=== PATIENT | male | born 1935 | race Caucasian/White ===

== ENCOUNTER 2017-08-28 16:50 | Inpatient (IN) | payer BC ==
[~2017-08-28 16:50] MED LIST: ATROPINE 1 MG/10 ML SYRINGE
[2017-08-28] MEDS: IPRATROPIUM (NEB) 0.5 MG/2.5 ML AMP INH (17:24)
[2017-08-28] MEDS: ALBUTEROL 0.5% (NEB) 2.5 MG/0.5 ML AMP INH (17:24)
[2017-08-28] MEDS: NITROGLYCERIN 50 MG/D5W (PMX) 250 ML IV (17:29)
[2017-08-28] MEDS: FUROSEMIDE 40 MG INJ IV (17:29)
[2017-08-28] MEDS: METHYLPREDNISOLONE 125 MG INJ IV (17:30)
[2017-08-28 17:31] LABS: ADD MAN DIFF? NO
[2017-08-28 17:34] LABS: AADO2 Arterial 46.3 mmHg (7.0-24.0); Allen Test ACCEPTAB; Arterial Base Excess 14.5 mmol/L (-3.0-3); Arterial Blood Gas Oxygen Sat 98.4 mmHG (95.0-100.0); Arterial COHb 0.9 % (0.0-3.0); Arterial Fraction of Oxyhgb 97.2 % (93.0-99.0); Arterial HCO3 47.9 mmol/L (22.0-26.0); Arterial MetHb 0.3 % (0.0-1.5); Arterial Total Hemglobin 11.8 g/dl (12.0-18.0); Arterial pCO2 135.6 mmhg (35-45); Blood Gas IEPAP 15/5; Blood Gas PS 10; MODE MASK - BIPAP; Site Right Radial
[2017-08-28 17:35] LABS: BASOPHILS % 0.2 % (0.0-2.0); EOSINOPHILS % 0.2 % (0.0-7.0); HEMATOCRIT 37.9 % (42.0-52.0); HEMOGLOBIN 11.4 g/dl (14.0-18.0); LYMPHOCYTES # 1.9 10^3/ul (0.8-2.9); MEAN CORPUSCULAR HEMOGLOBIN 29.3 pg (29.0-33.0); MEAN CORPUSCULAR HGB CONC 30.1 g/dl (32.0-37.0); MEAN CORPUSCULAR VOLUME 97.4 fl (82.0-101.0); MEAN PLATELET VOLUME 11.5 fl (7.4-10.4); MONOCYTE # 0.5 10^3/ul (0.3-0.9); NEUTROPHIL # 7.5 10^3/ul (1.6-7.5); NEUTROPHILS % 74.9 % (39.0-77.0); PLATELET COUNT 230 10^3/UL (140-415); RED BLOOD COUNT 3.89 10^6/ul (4.70-6.10); RED CELL DISTRIBUTION WIDTH 14.9 % (11.5-14.5)
[2017-08-28 17:50] LABS: INR 0.92; PROTIME 12.4 Sec (11.9-14.9)
[2017-08-28 17:51] LABS: PARTIAL THROMBOPLASTIN TIME 33.6 Sec (25.0-35.0)
[2017-08-28 17:53] LABS: ALANINE AMINOTRANSFERASE 41 IU/L (13-69); ALBUMIN 3.5 g/dl (3.3-4.9); ALBUMIN/GLOBULIN RATIO 1.06; ALKALINE PHOSPHATASE 72 IU/L (42-121); ASPARTATE AMINO TRANSFERASE 33 IU/L (15-46); BLOOD UREA NITROGEN 27 mg/dl (7-20); CALCIUM 10.4 mg/dl (8.4-10.2); CHLORIDE 94 mmol/L (97-110); CREATININE 0.74 mg/dl (0.61-1.24); GLUCOSE 161 mg/dl (70-220); POTASSIUM 4.1 mmol/L (3.5-5.1); SODIUM 144 mmol/L (135-144); TOTAL PROTEIN 6.8 g/dl (6.1-8.1)
[2017-08-28 18:02] LABS: ANION GAP 10 (8-16)
[2017-08-28 18:03] LABS: CARBON DIOXIDE 44 mmol/L (21-31)
[2017-08-28 18:14] LABS: TROPONIN-I < 0.012 ng/ml (0.00-0.12)
[2017-08-28] MEDS: HALOPERIDOL 5 MG INJ IV ×2 (19:17→19:57)
[2017-08-28 19:55] LABS: ADD UMIC NO; UR ASCORBIC ACID NEGATIVE (NEGATIVE); UR BILIRUBIN (Dip) NEGATIVE (NEGATIVE); UR BLOOD (Dip) NEGATIVE (NEGATIVE); UR CLARITY CLEAR (CLEAR); UR COLOR STRAW (YELLOW); UR GLUCOSE (Dip) NEGATIVE (NEGATIVE); UR KETONES (Dip) NEGATIVE (NEGATIVE); UR LEUKOCYTE ESTERASE (Dip) NEGATIVE Leu/ul (NEGATIVE); UR NITRITE (Dip) NEGATIVE (NEGATIVE); UR SPECIFIC GRAVITY (Dip) 1.006 (1.003-1.030); UR TOTAL PROTEIN (Dip) NEGATIVE (NEGATIVE); UR UROBILINOGEN (Dip) NEGATIVE (NEGATIVE)
[2017-08-28] MEDS: CEFEPIME 1GM/50 ML (PMX) 50 ML IVPB (20:34)
[2017-08-28] MEDS: CIPROFLOXACIN 400MG/D5W 200 ML IVPB (20:48)
[2017-08-28 20:55] LABS: Arterial Blood Gas Oxygen Sat 78.6 mmHG (95.0-100.0); Arterial COHb 1.3 % (0.0-3.0); Arterial Fraction of Oxyhgb 77.3 % (93.0-99.0); Arterial HCO3 44.8 mmol/L (22.0-26.0); Arterial MetHb 0.3 % (0.0-1.5); Arterial Total Hemglobin 11.4 g/dl (12.0-18.0); Arterial pCO2 81.5 mmhg (35-45); Blood Gas IEPAP 15/5; MODE MASK - BIPAP; Site Right Brachial
[2017-08-28] MEDS ORDERED: ALBUTEROL/IPRATROPIUM (NEB) 3 ML AMP HHN (21:30)
[2017-08-28] MEDS: ALBUTEROL/IPRATROPIUM (NEB) 3 ML AMP HHN (21:41)
[2017-08-29] MEDS: ALBUTEROL/IPRATROPIUM (NEB) 3 ML AMP HHN ×6 (00:54→20:41)
[2017-08-29 01:25] LABS: TROPONIN-I < 0.012 ng/ml (0.00-0.12)
[2017-08-29 06:08] LABS: ADD MAN DIFF? NO
[2017-08-29 06:14] LABS: ABNORMAL IP MESSAGE 1; HEMOGLOBIN 10.4 g/dl (14.0-18.0); LYMPHOCYTES # 0.6 10^3/ul (0.8-2.9); LYMPHOCYTES % 9.5 % (15.0-51.0); MEAN CORPUSCULAR HEMOGLOBIN 28.3 pg (29.0-33.0); MEAN CORPUSCULAR HGB CONC 29.7 g/dl (32.0-37.0); MEAN CORPUSCULAR VOLUME 95.4 fl (82.0-101.0); MEAN PLATELET VOLUME 11.6 fl (7.4-10.4); MONOCYTE # 0.2 10^3/ul (0.3-0.9); MONOCYTES % 3.9 % (0.0-11.0); NEUTROPHIL # 5.3 10^3/ul (1.6-7.5); NEUTROPHILS % 86.1 % (39.0-77.0); PLATELET COUNT 211 10^3/UL (140-415); POSITIVE DIFF @See below; RED BLOOD COUNT 3.67 10^6/ul (4.70-6.10); RED CELL DISTRIBUTION WIDTH 14.8 % (11.5-14.5)
[2017-08-29 06:14] LABS: WHITE BLOOD COUNT 6.1 10^3/ul (4.8-10.8)
[2017-08-29 06:36] LABS: ALANINE AMINOTRANSFERASE 48 IU/L (13-69); ALBUMIN 3.5 g/dl (3.3-4.9); ALBUMIN/GLOBULIN RATIO 1.29; ALKALINE PHOSPHATASE 65 IU/L (42-121); ASPARTATE AMINO TRANSFERASE 32 IU/L (15-46); BLOOD UREA NITROGEN 25 mg/dl (7-20); CALCIUM 9.8 mg/dl (8.4-10.2); CHLORIDE 94 mmol/L (97-110); CREATININE 0.77 mg/dl (0.61-1.24); GLUCOSE 109 mg/dl (70-220); POTASSIUM 4.1 mmol/L (3.5-5.1); SODIUM 144 mmol/L (135-144); TOTAL PROTEIN 6.2 g/dl (6.1-8.1)
[2017-08-29 06:37] LABS: ANION GAP 14 (8-16)
[2017-08-29 06:46] LABS: B-TYPE NATRIURETIC PEPTIDE 427 PG/ML (0-450)
[2017-08-29 06:48] LABS: TROPONIN-I 0.013 ng/ml (0.00-0.12)
[2017-08-29 06:49] LABS: CARBON DIOXIDE 44 mmol/L (21-31)
[2017-08-29] MEDS: HALOPERIDOL 5 MG INJ IM ×4 (07:43→22:52)
[2017-08-29] MEDS: FUROSEMIDE 40 MG INJ IV ×2 (09:33→18:55)
[2017-08-29] MEDS: CEFEPIME 1GM/50 ML (PMX) 50 ML IVPB ×2 (09:33→22:34)
[2017-08-29] MEDS: CIPROFLOXACIN 400MG/D5W 200 ML IVPB ×2 (09:33→22:33)
[2017-08-29 11:50] LABS: AADO2 Arterial 156.7 mmHg (7.0-24.0); Allen Test ACCEPTAB; Arterial Base Excess 18.9 mmol/L (-3.0-3); Arterial Blood Gas Oxygen Sat 94.9 mmHG (95.0-100.0); Arterial COHb 0.6 % (0.0-3.0); Arterial HCO3 46.9 mmol/L (22.0-26.0); Arterial MetHb 0.3 % (0.0-1.5); Arterial Total Hemglobin 11.4 g/dl (12.0-18.0); Blood Gas IEPAP 15/5; MODE MASK - BIPAP; Site Right Radial
[2017-08-30] MEDS: ALBUTEROL/IPRATROPIUM (NEB) 3 ML AMP HHN ×6 (00:53→21:00)
[2017-08-30] MEDS ORDERED: PENDING SANTYL ORDER FOR WOUND CARE XX (01:00)
[2017-08-30] MEDS: FUROSEMIDE 40 MG INJ IV (05:37)
[2017-08-30 08:34] LABS: AADO2 Arterial 127.1 mmHg (7.0-24.0); Allen Test ACCEPTAB; Arterial Base Excess 20.7 mmol/L (-3.0-3); Arterial Blood Gas Oxygen Sat 97.9 mmHG (95.0-100.0); Arterial COHb 0.2 % (0.0-3.0); Arterial Fraction of Oxyhgb 97.4 % (93.0-99.0); Arterial HCO3 52.4 mmol/L (22.0-26.0); Arterial MetHb 0.3 % (0.0-1.5); Arterial Total Hemglobin 11.8 g/dl (12.0-18.0); Arterial pCO2 112.6 mmhg (35-45); Blood Gas IEPAP 22/8; MODE MASK - BIPAP; Site Right Radial
[2017-08-30 08:43] LABS: ADD MAN DIFF? NO
[2017-08-30 08:48] LABS: BASOPHILS % 0.2 % (0.0-2.0); HEMATOCRIT 35.8 % (42.0-52.0); HEMOGLOBIN 10.6 g/dl (14.0-18.0); LYMPHOCYTES # 1.5 10^3/ul (0.8-2.9); LYMPHOCYTES % 12.5 % (15.0-51.0); MEAN CORPUSCULAR HEMOGLOBIN 28.9 pg (29.0-33.0); MEAN CORPUSCULAR HGB CONC 29.6 g/dl (32.0-37.0); MEAN CORPUSCULAR VOLUME 97.5 fl (82.0-101.0); MEAN PLATELET VOLUME 11.9 fl (7.4-10.4); MONOCYTE # 1.1 10^3/ul (0.3-0.9); MONOCYTES % 9.4 % (0.0-11.0); NEUTROPHIL # 9.2 10^3/ul (1.6-7.5); NEUTROPHILS % 77.6 % (39.0-77.0); PLATELET COUNT 233 10^3/UL (140-415); RED BLOOD COUNT 3.67 10^6/ul (4.70-6.10); RED CELL DISTRIBUTION WIDTH 15.4 % (11.5-14.5)
[2017-08-30 08:48] LABS: WHITE BLOOD COUNT 11.8 10^3/ul (4.8-10.8)
[2017-08-30 09:05] LABS: BLOOD UREA NITROGEN 32 mg/dl (7-20); CHLORIDE 90 mmol/L (97-110); CREATININE 1.06 mg/dl (0.61-1.24); GLUCOSE 101 mg/dl (70-220); POTASSIUM 3.3 mmol/L (3.5-5.1); SODIUM 148 mmol/L (135-144)
[2017-08-30 09:06] LABS: C-REACTIVE PROTEIN 0.6 mg/dl (0.0-0.9)
[2017-08-30 09:15] LABS: ANION GAP 11 (8-16)
[2017-08-30 09:18] LABS: CARBON DIOXIDE 50 mmol/L (21-31)
[2017-08-30] MEDS: CEFEPIME 1GM/50 ML (PMX) 50 ML IVPB ×2 (09:58→22:04)
[2017-08-30] MEDS: CIPROFLOXACIN 400MG/D5W 200 ML IVPB (09:58)
[2017-08-30 10:22] LABS: ERYTHROCYTE SEDIMENTATION RATE 15 mm/Hr (0-20)
[2017-08-30 13:00] LABS: AADO2 Arterial 75.1 mmHg (7.0-24.0); Allen Test ACCEPTAB; Arterial Base Excess 20.9 mmol/L (-3.0-3); Arterial Blood Gas Oxygen Sat 76.4 mmHG (95.0-100.0); Arterial COHb 0.8 % (0.0-3.0); Arterial Fraction of Oxyhgb 75.6 % (93.0-99.0); Arterial HCO3 52.2 mmol/L (22.0-26.0); Arterial MetHb 0.3 % (0.0-1.5); Arterial Total Hemglobin 11.4 g/dl (12.0-18.0); Arterial pCO2 110.3 mmhg (35-45); Blood Gas IEPAP 22/8; MODE MASK - BIPAP; Site Right Radial
[2017-08-30] MEDS: SILVER SULFADIAZINE 1% 25 GM CR TOP (15:14)
[2017-08-30] MEDS ORDERED: POTASSIUM CHLORIDE 50 ML IVPB (17:30)
[2017-08-30] MEDS: POTASSIUM CHLORIDE 20 MEQ in DEXTROSE 5% 100 ML IV (18:28)
[2017-08-30] MEDS: D5W-0.45 NACL + KCL 20 MEQ 1,000 ML IV (18:28)
[2017-08-31] MEDS: ALBUTEROL/IPRATROPIUM (NEB) 3 ML AMP HHN ×4 (00:16→13:05)
[2017-08-31] MEDS: PANTOPRAZOLE 40 MG INJ IV (05:16)
[2017-08-31 07:45] LABS: ADD MAN DIFF? NO
[2017-08-31 07:51] LABS: ABNORMAL IP MESSAGE 1; BASOPHILS % 0.1 % (0.0-2.0); HEMATOCRIT 43.1 % (42.0-52.0); HEMOGLOBIN 11.6 g/dl (14.0-18.0); LYMPHOCYTES % 6.7 % (15.0-51.0); MEAN CORPUSCULAR HEMOGLOBIN 28.6 pg (29.0-33.0); MEAN CORPUSCULAR HGB CONC 26.9 g/dl (32.0-37.0); MEAN CORPUSCULAR VOLUME 106.2 fl (82.0-101.0); MEAN PLATELET VOLUME 11.4 fl (7.4-10.4); MONOCYTE # 1.8 10^3/ul (0.3-0.9); MONOCYTES % 12.4 % (0.0-11.0); NEUTROPHIL # 11.7 10^3/ul (1.6-7.5); NEUTROPHILS % 80.5 % (39.0-77.0); PLATELET COUNT 238 10^3/UL (140-415); POSITIVE DIFF @See below; RED BLOOD COUNT 4.06 10^6/ul (4.70-6.10); RED CELL DISTRIBUTION WIDTH 14.8 % (11.5-14.5)
[2017-08-31 07:51] LABS: WHITE BLOOD COUNT 14.5 10^3/ul (4.8-10.8)
[2017-08-31] MEDS ORDERED: DOPamine-D5W 1.6 MG/ML 250 ML IV (08:00)
[2017-08-31] MEDS: NORepinephrine 8MG/250 ML (PMX 250 ML IV (08:16)
[2017-08-31] MEDS: SOD CHLORIDE 0.9% 500 ML IV ×2 (08:18→15:55)
[2017-08-31 08:26] LABS: AADO2 Arterial 50.4 mmHg (7.0-24.0); Allen Test ACCEPTAB; Arterial Base Excess 12.9 mmol/L (-3.0-3); Arterial Blood Gas Oxygen Sat 96.8 mmHG (95.0-100.0); Arterial COHb 1.5 % (0.0-3.0); Arterial Fraction of Oxyhgb 95.1 % (93.0-99.0); Arterial HCO3 48.2 mmol/L (22.0-26.0); Arterial MetHb 0.3 % (0.0-1.5); Arterial Total Hemglobin 11.9 g/dl (12.0-18.0); Arterial pCO2 166.3 mmhg (35-45); Blood Gas IEPAP 22/8; MODE MASK - BIPAP; Site Right Radial
[2017-08-31 08:33] LABS: BLOOD UREA NITROGEN 59 mg/dl (7-20); CALCIUM 9.4 mg/dl (8.4-10.2); CHLORIDE 92 mmol/L (97-110); CREATININE 2.26 mg/dl (0.61-1.24); GLUCOSE 171 mg/dl (70-220); MAGNESIUM 2.5 mg/dl (1.7-2.5); PHOSPHORUS 8.1 mg/dl (2.5-4.9); POTASSIUM 4.1 mmol/L (3.5-5.1); SODIUM 151 mmol/L (135-144)
[2017-08-31 08:34] LABS: ANION GAP 13 (8-16); CARBON DIOXIDE 50 mmol/L (21-31)
[2017-08-31] MEDS: CEFEPIME 1GM/50 ML (PMX) 50 ML IVPB (09:00)
[2017-08-31] MEDS: ENOXAPARIN 40 MG/0.4 ML SYG SC (09:17)
[2017-08-31] MEDS ORDERED: VANCOMYCIN IV PER PHARMACY XX (09:30)
[2017-08-31] MEDS: LIDOCAINE 1% (MPF) 5 ML VIAL SC (10:25)
[2017-08-31] MEDS: PIPER-TAZO 2.25 GM (PMX) 50 ML IVPB (10:59)
[2017-08-31] MEDS: SILVER SULFADIAZINE 1% 25 GM CR TOP (10:59)
[2017-08-31] MEDS: D5W-0.45 NACL + KCL 20 MEQ 1,000 ML IV (11:00)
[2017-08-31] MEDS: VANCOMYCIN 1.75 GM in DEXTROSE 5% 500 ML IVPB (11:57)
[2017-08-31] MEDS ORDERED: LORAZEPAM 1 MG TAB (16:54)
[2017-08-31] MEDS ORDERED: LORAZEPAM 2 MG INJ (16:57)
[2017-08-31] MEDS ORDERED: morphine (DRIP) 100 MG/100 ML 100 ML IV (17:00)
[2017-08-31] MEDS: LORAZEPAM 2 MG INJ IV (17:14)
[2017-08-31] MEDS: morphine (DRIP) 100 MG/100 ML 100 ML IV (17:14)
[2017-08-31] MEDS ORDERED: PIPER-TAZO 2.25 GM (PMX) 50 ML IVPB (18:00)
[2017-09-01] MEDS ORDERED: ENOXAPARIN 30 MG/0.3 ML SYG SC (09:00)
[2017-09-03 12:06] LABS: PROCALCITONIN 0.88 ng/mL (<0.10)
== END 2017-08-31 22:51 | disposition expired | DRG 189 ==
LOC: ICU 08-31 07:40 → E/R 16:50 → TEL 21:39 → ICU 08-29 20:42
PROC: 5A09357 Assistance with Respiratory Ventilation, Less than 24 Consecutive Hours, Continuous Positive Airway Pressure (ICD-10-PCS; principal; 2017-08-28)
DX: J96.22 Acute and chronic respiratory failure with hypercapnia (principal); A41.9 Sepsis, unspecified organism; R65.21 Severe sepsis with septic shock; I50.33 Acute on chronic diastolic (congestive) heart failure; J44.1 Chronic obstructive pulmonary disease with (acute) exacerbation; L97.829 Non-pressure chronic ulcer of other part of left lower leg with unspecified severity; I11.0 Hypertensive heart disease with heart failure; I27.20 Pulmonary hypertension, unspecified; Z99.81 Dependence on supplemental oxygen; Z66 Do not resuscitate; I45.10 Unspecified right bundle-branch block; R09.02 Hypoxemia
CPT/HCPCS: 36415; 36600; 71045; 80048; 80053; 81003; 82803; 82962; 83735; 83880; 84100; 84145; 84484; 85025; 85610; 85651; 85730; 86140; 87040; 87070; 93005; 94640; 94644; 94660; 94664; 96365; 96366; 96367; 96368; 96372; 96375; 96376; 99291-25